=== PATIENT | female | born 1940 | race Caucasian/White ===

== ENCOUNTER → 2019-11-21 11:14 | Outpatient (CLI) | payer MEDICARE, SELFPAY ==
--- NOTE | ~2019-11-21 | DEXA_ITS ---
Bone Density Report Name: Shoshana Sterling Age: 79 Sex: Female Ethnicity: White Date of : 1940 Indication: postmenopausal; screening for osteoporosis; parental hip fracture; height loss; prior fracture; hysterectomy; Referring Provider: SAMIR BROWN Study: Bone densitometry was performed. Exam Date: November 21, 2019 Accession number: [id number] Bone Density: Region BMD T-score Z-score Classification AP Spine (L1, L2, L4) 1.055 0.2 2.9 Normal Femoral Neck (Left) 0.678 -1.5 0.8 Osteopenia Total Hip (Left) 0.926 -0.1 2.0 Normal Femoral Neck (Right) 0.720 -1.2 1.2 Osteopenia Total Hip (Right) 0.847 -0.8 1.4 Normal Total Hip Mean 0.887 -0.5 1.7 Normal World Health Organization criteria for BMD impression classify patients as: Normal (T-score at or above -1.0), Osteopenia (T-score between -1.0 and -2.5), or Osteoporosis (T-score at or below -2.5). 10-year Fracture Risk: FRAX not reported because: Prior hip or vertebral fracture Previous Exams: Region Exam Age BMD T-score BMD Change BMD Change Date g/cm2 vs Baseline vs Previous AP Spine(L1, L2, L4) 11/21/2019 79 1.055 0.2 -0.005 -0.005 11/17/2017 77 1.060 0.2 Total Hip(Left) 11/21/2019 79 0.926 -0.1 -0.001 -0.001 11/17/2017 77 0.927 -0.1 Total Hip(Right) 11/21/2019 79 0.847 -0.8 -0.003 -0.003 11/17/2017 77 0.851 -0.7 *Denotes significance at 95% confidence level, LSC for AP Spine = 0.022 g/cm2, LSC for Total Hip = 0.027 g/cm2 Clinical Information Provided by Patient: Have had a previous hip or vertebral fracture Has had a low trauma fracture Parent has had a hip fracture Has used the following medications: Vitamin D, Calcium Has the following medical conditions: Hysterectomy Patient maximum height was 63.5 Menopause Age: 48 No regular weight bearing exercise Drinks caffeinated beverages Onset of menses at age 10 Number of children 2 Impression: The patient has low bone mass, based on the Left Femoral Neck T-score. The patient has risk factors, including: parental hip fracture, previous fracture. No significant bone loss was observed. Discussion: INCREASED RISK OF FRACTURE DUE TO HISTORY OF FRACTURE. The patient's previous fracture puts the patient at high risk of a future fracture. In untreated patients, the risk of osteoporotic fracture increases approximately two-fold for each 1.0 SD decrease in T-score.
== END ==
PROVIDERS: Visit Provider Obstetrics & Gynecology Gynecology
DX: M85.852 Other specified disorders of bone density and structure, left thigh (principal); M85.851 Other specified disorders of bone density and structure, right thigh; Z78.0 Asymptomatic menopausal state
CPT/HCPCS: 77080

== ENCOUNTER 2023-03-03 14:16 | Emergency (ER) | payer MEDICARE, SELFPAY ==
--- NOTE | ~2023-03-03 | CT_ITS ---
EXAMINATION: CT cervical spine wo con DATE: 03/03/2023 14:51 INDICATION: Head injury. TECHNIQUE: Computed tomography (CT) of the cervical spine was performed without intravenous contrast. Automated exposure control and iterative reconstruction technique were employed. The dose-length pro duct was 398.66 mGy-cm. COMPARISON: None FINDINGS: There is mild scarring at the lung apices. There is 13 degrees dextroscoliosis of cervicoth oracic spine. There is 2 mm anterolisthesis of C3 on C4, 2 mm retrolisthesis of C4 on C5 and C5 on C6 , and 2 mm anterolisthesis of C6 on C7, C7 on T1, and T1 on T2. Vertebral body heights are normal. Th ere is severely decreased disc height from C3-C4 through T3-T4 with endplate remodeling. The followin g disc levels are specifically discussed: C2-C3: There is mild right uncovertebral joint osteoarthritis. There is severe bilateral facet joint osteoarthritis. There is mild bilateral neural foraminal stenosis. There is no central canal stenosis . C3-C4: There is moderate right and severe left uncovertebral joint osteoarthritis. There is severe bi lateral facet joint osteoarthritis. There is mild right and moderate left neural foraminal stenosis. There is mild central canal stenosis. C4-C5: There is ankylosis of the uncovertebral joints with mild hypertrophy. There is no facet joint osteoarthritis. There is no neural foraminal stenosis. There is mild central canal stenosis. C5-C6: There is moderate right and severe left uncovertebral joint osteoarthritis. There is moderate right and severe left facet joint osteoarthritis. There is mild right and moderate left neural forami nal stenosis. There is mild central canal stenosis. C6-C7: There is mild bilateral uncovertebral joint osteoarthritis. There is severe bilateral facet candi int osteoarthritis. There is mild bilateral neural foraminal stenosis. There is mild central canal st enosis. C7-T1: There is mild bilateral uncovertebral joint osteoarthritis. There is severe bilateral facet candi int osteoarthritis. There is mild bilateral neural foraminal stenosis. There is no central canal sten osis. IMPRESSION: 1. No fracture. 2. Severe cervical spondylosis. 3. Cervicothoracic dextroscoliosis. Reviewed, dictated and finalized at location A.
--- NOTE | ~2023-03-03 | CT_ITS ---
EXAMINATION: CT brain wo con DATE: 03/03/2023 14:51 INDICATION: Head injury. Memory loss. TECHNIQUE: Computed tomography (CT) of the head was performed without intravenous contrast. The mA wa s adjusted according to patient size. Iterative reconstruction technique was employed. The dose-lengt h product was 605.33 mGy-cm. COMPARISON: None FINDINGS: There is no intracranial hemorrhage, acute infarction, or abnormal intracranial mass lesion . The ventricles are normal in size. There are likely changes of ocular lens replacement surgeries. T he paranasal sinuses are clear. The mastoid air cells are normal. IMPRESSION: 1. Normal brain. Reviewed, dictated and finalized at location A. IMPRESSION: 1. Normal brain.
[2023-03-03 14:33] VITALS: BP 178/72; PULSE 70; RESP 18; TEMP 36.6; O2SAT 100
[2023-03-03 15:17] VITALS: BP 158/82; PULSE 71; RESP 21; O2SAT 100
--- NOTE | 2023-03-03 15:28 | ED.FALL ---
HPI - Fall General Chief Complaint: Fall Stated Complaint: fall at [facility]-denies LOC. no blood thinners Time Seen by Provider: 03/03/23 14:47 History of Present Illness HPI Narrative: Patient is an 83-year-old female presenting after a fall. Patient states that she was at [facility] when she accidentally backed into a another cart. She fell backwards striking the back of her head. No loss of consciousness. States that she has soreness in the back of her head. Denies numbness or weakness. No nausea or vomiting. Denies neck pain or back pain. Denies further injuries or complaints. Related Data Allergies Allergy/AdvReac Type Severity Reaction Status Date / Time Penicillins Allergy Unknown HIVES Verified 03/03/23 14:58 Sulfa (Sulfonamide Allergy Unknown HIVES Verified 03/03/23 14:58 Antibiotics) Review of Systems Review of Systems: All systems reviewed & are unremarkable except as noted in HPI and below Exam Narrative: GENERAL: Well-appearing, well-nourished, and in no acute distress. HEAD: Normocephalic, 2 cm scalp laceration mid occiput region EYES: PERRLA and EOMI. ENT: Nares clear, no rhinorrhea or epistaxis. Mucous membranes moist. NECK: Supple. C-collar in place CHEST: Clear to auscultation. No respiratory distress. HEART: Regular rate and rhythm. ABDOMEN: Soft, nontender, nondistended EXTREMITIES: Normal range of motion. No edema. SKIN: Warm, dry, no rash. NEURO: No focal deficits. Alert and oriented x3. PSYCH: Normal mood and affect. Course Vital Signs Vital signs: Vital Signs Temperature 97.8 F 03/03/23 14:33 Pulse Rate 70 03/03/23 14:33 Respiratory Rate 18 03/03/23 14:33 Blood Pressure 178/72 H 03/03/23 14:33 Pulse Oximetry 100 03/03/23 14:33 Oxygen Delivery Room Air 03/03/23 14:33 Temperature 97.8 F 03/03/23 14:33 Pulse Rate 75 03/03/23 16:46 Respiratory Rate 15 03/03/23 16:46 Blood Pressure 129/83 03/03/23 16:46 Pulse Oximetry 99 03/03/23 16:46 Oxygen Delivery Room Air 03/03/23 14:33 MDM - Fall MDM Narrative Medical decision making narrative: 83-year-old female presenting after ground-level fall. Patient is hypertensive, otherwise vitals are within normal limits. Exam is remarkable for the above. CT brain and cervical spine show no acute abnormalities or injuries. Patient denies midline neck tenderness. She does have a laceration on the back of her head. Her tetanus was updated and fariba were used to repair it. Please see procedure note for further detail. Tolerated without complication. Discussed appropriate supportive care. Advise close PCP follow-up. Discharged in stable condition. Differential Diagnosis Differential diagnosis: Likely other (Fall, head injury, laceration) Medical Records Attestation: I reviewed the patient's medical records. Imaging Data Radiologist's impression: ITS Impressions Head CT 03/03/23 14:54 IMPRESSION: 1. Normal brain. Cervical Spine CT 03/03/23 14:56 IMPRESSION: 1. No fracture. 2. Severe cervical spondylosis. 3. Cervicothoracic dextroscoliosis. Critical Care Time Critical Care Time Critical Care Time: No Discharge Plan Discharge Clinical Impression: Fall, Laceration of scalp, Head injury Patient Disposition: Home, Self-Care Condition: Stable Instructions: Antibiotic Form, Laceration (ED), Head Injury (ED) Additional Instructions: Please keep the cut clean and dry for the next 24 hours. You may shower after this but do not scrub the area. Please follow-up closely with your PCP. We recommend Tylenol for pain control. If your pain suddenly worsens, you develop nausea or vomiting, numbness or weakness, confusion, or other concerning symptoms arise, please return to the ER. Follow-up/Referrals: See,Guy Osborne DO [Primary Care Provider] -
[2023-03-03 15:40] VITALS: BP 158/82; PULSE 78; RESP 18; O2SAT 99
[2023-03-03] MEDS: TETANUS,DIPHTHERIA,AC PERTUSSIS ADULT (0.5 ML) BOOSTRIX IM (15:41)
[2023-03-03] MEDS: ACETAMINOPHEN 500 MG TABLET 1000 MG PO (15:42)
[2023-03-03 15:46] VITALS: BP 187/100; PULSE 79; RESP 15
[2023-03-03 16:46] VITALS: BP 129/83; PULSE 75; RESP 15; O2SAT 99
== END 2023-03-03 16:53 | disposition home or self-care (01) ==
PROVIDERS: Emergency Provider Emergency Medicine; PCP Family Medicine
DX: S01.01XA Laceration without foreign body of scalp, initial encounter (principal); Z23 Encounter for immunization; M47.812 Spondylosis without myelopathy or radiculopathy, cervical region; W18.09XA Striking against other object with subsequent fall, initial encounter
CPT/HCPCS: 70450; 72125; 90471; 90715; 99284; A9270

== ENCOUNTER 2024-01-04 07:48 | Outpatient (CLI) | payer MEDICARE, SELFPAY ==
--- NOTE | ~2024-01-04 | DEXA_ITS ---
Bone Density Report Name: Shoshana Sterling Age: 83 Sex: Female Ethnicity: White Date of : 1940 Indication: postmenopausal; screening for osteoporosis; parental hip fracture; height loss; prior fracture; hysterectomy; Referring Provider: SAMIR BROWN Study: Bone densitometry was performed. Exam Date: January 04, 2024 Accession number: [id number] Bone Density: Region BMD T-score Z-score Classification AP Spine (L1, L2, L4) 1.112 0.7 3.5 Normal Femoral Neck (Left) 0.738 -1.0 1.5 Normal Total Hip (Left) 0.919 -0.2 2.2 Normal Femoral Neck (Right) 0.671 -1.6 0.9 Osteopenia Total Hip (Right) 0.835 -0.9 1.5 Normal Total Hip Mean 0.877 -0.6 1.9 Normal World Health Organization criteria for BMD impression classify patients as: Normal (T-score at or above -1.0), Osteopenia (T-score between -1.0 and -2.5), or Osteoporosis (T-score at or below -2.5). 10-year Fracture Risk: FRAX not reported because: Prior hip or vertebral fracture Previous Exams: Region Exam Age BMD T-score BMD Change BMD Change Date g/cm2 vs Baseline vs Previous AP Spine(L1, L2, L4) 01/04/2024 83 1.112 0.7 0.052* 0.057* 11/21/2019 79 1.055 0.2 -0.005 -0.005 11/17/2017 77 1.060 0.2 Total Hip(Left) 01/04/2024 83 0.919 -0.2 -0.007 -0.006 11/21/2019 79 0.926 -0.1 -0.001 -0.001 11/17/2017 77 0.927 -0.1 Total Hip(Right) 01/04/2024 83 0.835 -0.9 -0.015 -0.012 11/21/2019 79 0.847 -0.8 -0.003 -0.003 11/17/2017 77 0.851 -0.7 *Denotes significance at 95% confidence level, LSC for AP Spine = 0.022 g/cm2, LSC for Total Hip = 0.027 g/cm2 Clinical Information Provided by Patient: Have had a previous hip or vertebral fracture Has had a low trauma fracture Parent has had a hip fracture Has used the following medications: Vitamin D, Calcium, MTV Has the following medical conditions: Hysterectomy, uterine cancer 2015 Patient maximum height was 63.5 Menopause Age: 48 No regular weight bearing exercise Drinks caffeinated beverages Onset of menses at age 10 Number of children 2 Impression: The patient has low bone mass, based on the Right Femoral Neck T-score. The patient has risk factors, including: parental hip fracture, previous fracture. No significant bone loss was observed. Discussion: INCREASED RISK OF FRACTURE DUE TO HISTORY OF FRACTURE.
== END 2024-01-04 07:49 ==
PROVIDERS: PCP Family Medicine; Visit Provider Obstetrics & Gynecology Gynecology
DX: M85.88 Other specified disorders of bone density and structure, other site (principal); Z78.0 Asymptomatic menopausal state
CPT/HCPCS: 77080

== ENCOUNTER 2024-05-01 09:33 | Emergency (ER) | payer MEDICARE, SELFPAY ==
--- NOTE | 2024-05-01 09:43 | ED.SKABFB ---
HPI - Skin/Abscess/Foreign Bdy General Chief complaint: Skin/Abscess/Foreign Body Stated complaint: lt thumb injury Time Seen by Provider: 05/01/24 09:44 Source: patient Mode of arrival: ambulatory Limitations: no limitations History of Present Illness HPI narrative: Shoshana is an 84-year-old female patient presenting to the clinic today with complaints of a left thumb injury/laceration. 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 She reports she partially went through her nail but did not go into the skin of her finger. States there was a lot of bleeding at the time however she got the bleeding to stop. This incident happened 3 days ago. Has been applying antibiotic ointment to the area and keeping it covered with a Band-Aid. Related Data Home Medications Medication Instructions Recorded Confirmed hydrochlorothiazide 12.5 mg capsule 12.5 mg PO DAILY 05/01/24 05/01/24 losartan 50 mg tablet 50 mg PO DAILY 05/01/24 05/01/24 metoprolol tartrate 50 mg tablet 50 mg PO DAILY 05/01/24 05/01/24 Allergies Allergy/AdvReac Type Severity Reaction Status Date / Time Penicillins AdvReac Mild HIVES Verified 05/01/24 09:38 Sulfa (Sulfonamide AdvReac Mild HIVES Verified 05/01/24 09:38 Antibiotics) Review of Systems Review of Systems: Pertinent positives per HPI. Patient denies any fever, chills, rash, headache, visual changes, dizziness, cough, runny nose, sore throat, shortness of breath, chest pain, palpitations, nausea, vomiting, diarrhea, constipation, abdominal pain, or any urinary issues. PMFSH Comments At the time of my signature, I reviewed and agree with the nursing past medical, surgical, social, and family history. There is no relevant family history pertinent to the patient complaint. Exam Narrative: General: Well-developed, well nourished, in no apparent distress Head: Normocephalic, atraumatic. Cardio: Regular rate and rhythm, s1 and s2 normal, no murmur appreciated. Resp: Clear to auscultation bilaterally, no rhonchi, rales, wheezing or rubs. Integumentary: [place], warm, and dry, partial laceration through the nail of the left thumb, nontender to the distal phalanx, no erythema, redness, or purulent discharge noted Course Course Emergency Course: Portions of this record may have been created with voice recognition software. Level of Care: Express Care Visit Vital Signs Vital signs: Vital Signs Temperature 36.2 C L 05/01/24 09:45 Pulse Rate 66 05/01/24 09:45 Respiratory Rate 16 05/01/24 09:45 Blood Pressure 189/62 H 05/01/24 09:45 Pulse Oximetry 99 05/01/24 09:45 Oxygen Delivery Room Air 05/01/24 09:45 Temperature 36.2 C L 05/01/24 09:45 Pulse Rate 66 05/01/24 09:45 Respiratory Rate 16 05/01/24 09:45 Blood Pressure 189/62 H 05/01/24 09:45 Pulse Oximetry 99 05/01/24 09:45 Oxygen Delivery Room Air 05/01/24 09:45 Vital signs reviewed MDM - Skin/Abscess/Foreign Bdy MDM Narrative Medical decision making narrative: At the time of visit patient is resting comfortably on the exam table. Patient appears to be nontoxic. Medications given: Tdap Plan: I suspect patient has a partial laceration to the left thumb nail. Recommend continuing to apply antibiotic ointment and keep covered with a Band-Aid so she does not catch this and may trim of the nail as it grows out. Watch for signs and symptoms of infection. Tdap was updated in the clinic today Supportive measures were discussed with the patient and they voiced understanding discharge instructions and agrees to treatment plan. Return precautions reviewed Differential Diagnosis Differential diagnosis: Likely other (Laceration, skin avulsion, abrasion) Discharge Plan Discharge Clinical Impression: Laceration of left thumb with damage to nail Qualifiers: Encounter type: initial encounter Foreign body presence: without foreign body Qualified Code(s): S61.112A - [place]
[2024-05-01 09:45] VITALS: BP 189/62; PULSE 66; RESP 16; TEMP 36.2; O2SAT 99
== END 2024-05-01 10:02 | disposition home or self-care (01) ==
PROVIDERS: Emergency Provider Nurse Practitioner Family; PCP Family Medicine
DX: S61.112A Laceration without foreign body of left thumb with damage to nail, initial encounter (principal); W27.8XXA Contact with other nonpowered hand tool, initial encounter; I10 Essential (primary) hypertension; M19.90 Unspecified osteoarthritis, unspecified site; H26.9 Unspecified cataract; Z85.42 Personal history of malignant neoplasm of other parts of uterus
CPT/HCPCS: 99212; G0463